=== PATIENT | male | born 1960 | race African-American/Black ===

== ENCOUNTER 2021-11-19 00:07 | Inpatient (IN) | payer OTHER ==
[2021-11-19] VITALS (7 sets, daily range): BP systolic 131–166; BP diastolic 72–107
[~2021-11-19] VITALS: Ht 152.4 cm; Wt 77.6 kg
[2021-11-19] MEDS ORDERED: NOHOMEMEDICATIONS (00:15)
[2021-11-19 01:28] LABS: ABSOLUTE NEUTROPHILS 7.6 thou/uL (1.4-8.2); BASOPHILS 0.4 % (0.0-2.0); EOSINOPHILS 0.1 % (0.0-3.0); HEMATOCRIT 40.6 % (42.0-52.0); HEMOGLOBIN 13.3 gm/dL (14.0-18.0); LYMPHOCYTES 10.3 % (24.0-44.0); MCH 26.2 pg (26.0-34.0); MCHC 32.7 g/dL (28.0-37.0); MCV 80.2 fL (80.0-100.0); MONOCYTES 4.9 % (1.0-8.0); PLATELET COUNT 256 thou/uL (150-400); POLYS 84.3 % (36.0-66.0); RBC 5.07 mil/uL (4.50-6.00); RDW 15.8 % (10.5-14.5)
[2021-11-19 01:36] LABS: CALCIUM 9.3 mg/dL (8.5-10.1); CREATININE 0.8 mg/dL (0.7-1.3); POTASSIUM 4.2 mmol/L (3.5-5.1)
[2021-11-19 01:42] LABS: ALBUMIN 3.7 g/dL (3.4-5.0); TOTAL BILIRUBIN 0.6 mg/dL (0.2-1.0)
[2021-11-19 04:00] LABS: URINE BILIRUBIN NEGATIVE (Negative); URINE BLOOD NEGATIVE (Negative); URINE CLARITY CLEAR; URINE COLOR YELLOW; URINE GLUCOSE-RANDOM* NEGATIVE (Negative); URINE KETONES 3+ (Negative); URINE LEUKOCYTES-REFLEX NEGATIVE (Negative); URINE NITRITE-REFLEX NEGATIVE (Negative); URINE PROTEIN (DIPSTICK) NEGATIVE (Negative); URINE UROBILINOGEN 0.2 E.U./dl (0.2-1.0)
[2021-11-19 05:32] LABS: CHOLESTEROL 182 mg/dL (<200); HDL CHOLESTEROL 60 mg/dL (>40); LDL CHOLESTEROL 109 mg/dL (<100); TRIGLYCERIDE 67 mg/dL (<150); VLDL 13 mg/dL (<40)
[2021-11-19 05:43] LABS: SERUM ASSESSMENT Clear
--- NOTE | 2021-11-19 07:19 | NUR ---
ADMIT REPORT FROM DAVID RUIZ FROM ED PT BEING ADMITTED WITH PANCREATITIS. TO FLOOR VIA CART. TRANSFERRED SELF FROM CART TO BED. VSS. ORIENTED TO ROOM, CALL LIGHT AND POC. [id number] INFUSING INTO LAC WITHOUT DIFFICUTY. RATING PAIN A 5 OUT OF 0/10 4 MG MORPHINE GIVEN IVP. CONTINUE POC.
--- NOTE | 2021-11-19 11:22 | EKG ---
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 : 1960 Requested By: Beto Trivedi Order Number: [id number] MD: Iraj Hernandez Measurements Intervals Scalf Rate: 100 P: 42 ID: [id number] QRS: 49 QRSD: 95 T: 29 QT: 386 QTc: 498 Interpretive Statements Sinus tachycardia with sinus arrhythmia Borderline prolonged QT interval No previous ECG available for comparison Electronically Signed On 11-19-2021 11:22:38 FIRE CODE INSPECTOR by Iraj Hernandez [email or web address] <ELECTRONICALLY SIGNED> By: Iraj Hernandez MD, [facility] 11/19/21 1122 0045 0045 Iraj Hernandez MD, FACC /EPI
--- NOTE | 2021-11-19 18:32 | NUR ---
ASSUMED PATIENT CARE AT 0700. A/O X4. CIW 0. TOLERATED ON LIQUID DIET. NO N/V. PROGRESSING TOWARDS POC GOALS.
[2021-11-20 04:20] VITALS: BP 123/76
[2021-11-20 06:28] LABS: CALCIUM 8.4 mg/dL (8.5-10.1); POTASSIUM 4.9 mmol/L (3.5-5.1)
--- NOTE | 2021-11-20 07:38 | NUR ---
Patient making slow progress towards outcome goals. Vital signs and rhythm stable. Oxygenation optimal on room air. IVfluids infusing. Good pain control with Morphine. Appetite poor, did not eat dinner, diet kept at full liquids. CIWA-0.
[2021-11-20 07:48] VITALS: BP 144/98
--- NOTE | 2021-11-20 14:59 | NUR ---
CARE ASSUMED THIS AM, PT ALERT AND ORIENTED X4. CIWA SCORE WAS 0, PT DNIES ANY ALCOHOL WITHDRAWL. STATED ABDOMINAL PAIN IS TOLERABLE AND WILL LET ME KNOW WHENM HE NEED SOMETHING FOR PAIN. IV FLUIDS D/C PER MD ORDERS. VISITING, UPDATED ABPUT CARE. D/C ANTTICIPATED FOR TMR. WILL CONTINUE TO MONITOR.
[2021-11-20 15:15] VITALS: BP 156/108
[2021-11-20 19:50] VITALS: BP 158/102
[2021-11-21] VITALS (7 sets, daily range): BP systolic 124–155; BP diastolic 82–104
--- NOTE | 2021-11-21 05:44 | NUR ---
Patient making progress towards outcome goals. Denies any abdominal pain. Large bowel movement after Magnesium citrate. Up adlib without difficulty. CIWA-0. Tolerating soft diet, drinking plenty of fluids. Tachycardic up to 160's when ambulating.
[2021-11-21] MEDS ORDERED: PEPCID20 MG PO (10:39)
--- NOTE | 2021-11-21 12:23 | EKG ---
[address] [address] ELECTROCARDIOGRAM REPORT Name: SHANNAN DOMINGO Room #: 362-P ADM IN M.R.#: [id number] Admission: 11/19/21 Attend Phys: Celio Patel Discharge: Date of : 64 Report #: [id number] [facility] Test Date: 2021-11-21 Test Time: 12:19:27 Pat Name: SHANNAN DOMINGO Department: Room: 362 P Gender: M Formula Clerk: BERNADETTE : 1960 Requested By: Bandar Campos Order Number: [id number] MD: Francisco Carvajal Measurements Intervals [employer] Rate: 96 P: 29 NC: 138 QRS: 18 QRSD: 77 T: 24 QT: 357 QTc: 452 Interpretive Statements Sinus rhythm Early transition Compared to ECG 11/19/2021 00:45:43 Sinus tachycardia no longer present Electronically Signed On 11-21-2021 12:23:34 PROBATION AND PAROLE OFFICER by Francisco Carvajal [email or web address] <ELECTRONICALLY SIGNED> By: Francisco Carvajal MD 11/21/21 1223 1219 1219 Francisco Carvajal MD /LENNY
[2021-11-21] MEDS ORDERED: TOPROL XL25 MG PO (13:59)
--- NOTE | 2021-11-21 14:58 | 2DMMODE ---
[address] [address] 2 D/M-MODE ECHOCARDIOGRAM Name: SHANNAN DOMINGO Room #: 362-P ADM IN M.R.#: [id number] Admission: 11/19/21 Attend Phys: Celio Patel Discharge: Date of : 64 Report #: [id number] THIS REPORT FOR: cc: FAM - No family physician/PCP FAM - No family physician/PCP Francisco Carvajal MD ~ APPROVED REPORT Study performed: 11/21/2021 14:01:52 EXAM: Comprehensive 2D, Doppler, and color-flow Echocardiogram Patient Location: Bedside Room #: 362 Status: routine BSA: 1.88 HR: 95 bpm BP: 131/89 mmHg Rhythm: NSR Other Information Study Quality: Good Indications Tachycardia Left Ventricle The left ventricle is normal size. There is normal LV segmental wall motion. There is normal left ventricular wall thickness. Left ventricular systolic function is normal. The left ventricular ejection fraction is within the normal range. LVEF is >55%. This study is not technically sufficient to allow evaluation of the LV diastolic function. Right Ventricle The right ventricle is normal size. The right ventricular systolic function is normal. Atria The left atrium size is normal. The right atrium size is normal. Aortic Valve The aortic valve is normal in structure. No aortic regurgitation is present. There is no aortic valvular stenosis. [address] [place] [address] 2 D/M-MODE ECHOCARDIOGRAM Name: SHANNAN DOMINGO Room #: 362-P ADM IN M.R.#: [id number] Admission: 11/19/21 Attend Phys: Celio Fisher Discharge: Date of : 64 Report #: [id number] Mitral Valve The mitral valve is normal in structure. Trace mitral regurgitation. No evidence of mitral valve stenosis. Tricuspid Valve The tricuspid valve is normal in structure. There is no tricuspid valve regurgitation noted. Pulmonic Valve The pulmonary valve is normal in structure. There is no pulmonic valvular regurgitation. Great Vessels The aortic root is normal in size. IVC is normal in size and collapses >50% with inspiration. Pericardium There is no pericardial effusion. <Conclusion> The left ventricle is normal size. There is normal left ventricular wall thickness. LVEF is >55%. The left atrium size is normal. The aortic valve is normal in structure. The mitral valve is normal in structure. Trace mitral regurgitation. The tricuspid valve is normal in structure. The pulmonary valve is normal in structure. The aortic root is normal in size. There is no pericardial effusion. <ELECTRONICALLY SIGNED> By: Francisco Carvajal MD 11/21/21 1458 1458 1458 Francisco Carvajal MD /INF
== END 2021-11-21 16:04 | disposition home or self-care (01) | DRG 438 ==
LOC: ER 00:07 → EROBS 02:50 → 3W 02:50
PROVIDERS: Emergency Medicine; Nurse Practitioner Family; ADMIT Hospitalist; ATTEND Hospitalist
DX: K85.20 Alcohol induced acute pancreatitis without necrosis or infection (principal); R65.11 Systemic inflammatory response syndrome (SIRS) of non-infectious origin with acute organ dysfunction; F10.10 Alcohol abuse, uncomplicated; Z20.822 Contact with and (suspected) exposure to COVID-19; F17.210 Nicotine dependence, cigarettes, uncomplicated; Z71.6 Tobacco abuse counseling
CPT/HCPCS: 10879